=== PATIENT | male | born 1970 | race Caucasian/White ===

== ENCOUNTER 2019-06-02 19:52 | Emergency (ER) | payer MEDICAID ==
[2019-06-02] MEDS ORDERED: Acetaminophen 500 MG TAB PO ONE (22:40)
[2019-06-02] MEDS ORDERED: Acetaminophen 500 MG TAB ONE (22:44)
[2019-06-02 23:02] LABS: URINE SOURCE RANDOM
[2019-06-02 23:07] LABS: URINE BILIRUBIN NEGATIVE (NEGATIVE); URINE BLOOD NEGATIVE (NEGATIVE); URINE GLUCOSE (UA) NEGATIVE (NEGATIVE); URINE KETONE NEGATIVE (NEGATIVE); URINE LEUKOCYTE ESTERASE NEGATIVE (NEGATIVE); URINE NITRATE NEGATIVE (NEGATIVE); URINE PROTEIN NEGATIVE (NEGATIVE); URINE UROBILINOGEN 0.2 E.U./dL (0.2 - 1.0)
[2019-06-02 23:12] LABS: URINE CLARITY CLEAR (CLEAR); URINE COLOR YELLOW
[2019-06-02 23:13] LABS: URINE MICROSCOPIC INDICATED? YES
[2019-06-02 23:14] LABS: URINE BACTERIA NONE SEEN /hpf (NONE SEEN); URINE EPITHELIAL CELLS NONE SEEN /lpf (FEW); URINE RBC NONE SEEN /hpf (0-5); URINE WBC NONE SEEN /hpf (0-5)
[2019-06-02 23:29] LABS: ALB/GLOB RATIO 1.5 (1.0-1.8); ALBUMIN 4.6 gm/dL (4.2-5.5); TOTAL PROTEIN,SERUM 7.7 gm/dL (6.0-8.3)
[2019-06-02 23:34] LABS: BILIRUBIN,DIRECT 0.09 mg/dL (0.0-0.2)
--- NOTE | 2019-06-03 00:05 | ER Physician Documentation ---
DATE OF SERVICE: 06/02/2019 The patient was seen on 06/02/2019, somewhere around 10:15 or so. The patient was seen by the nurse before. CHIEF COMPLAINT: The patient is a chronic alcoholic. He has been in the alcoholic program. He wants some Librium tablets. He has been on many medications, which include oxycodone and Flomax, and he has hypertension for which he takes losartan 100 mg once a day plus for his urinary tract problems, I think BPH, he might be having, for which he takes Flomax 0.4 mg once a day. He has some chronic back pain, and now his chief complaint is that he has had a fall 1 week ago on the left side and he has pain in one of the lower ribs in the front area where his has marked X over there and there he is a feeling some grinding type of pain and he wants some Librium so that he can become detoxified and not go into DTs, which is what we will do. He is okay. We may calm him down because of this condition. The patient's other problems are already mentioned to you. PAST MEDICAL HISTORY: Otherwise, as I told you, chronic alcoholic and the patient has a history of a few falls and has chronic back pain and the patient has been taking oxycodone by pain medication doctor. Otherwise, he does not have any heart problems. He does not have any lung problem. Pulmonary dunn, no history of pneumonia, TB, pulmonary embolism, COPD, emphysema or bronchitis. Heart dunn, the patient has no history of rheumatic fever, valvular heart disease, pericardial disease, angina pectoris, pericarditis. Abdominal dunn, patient has some occasional mild epigastric discomfort. Otherwise, the rib pain that I described is the same. The patient does not have any gallbladder problems. Genitourinary dunn, the patient has benign prostatic hypertrophy for which he takes Flomax 0.4 mg once a day. The patient has chronic back pain for which he is taking oxycodone as per his pain doctor's thing. Endocrine dunn, the patient has no diabetes mellitus. No history of hypo or hyperthyroidism. The patient has no history of arrhythmia. The patient can walk. He came here with Tenebril and no family members are with him. 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 He is not working. REVIEW OF SYSTEMS: I already mentioned that no other complaints; the patient has it. The patient does not have any kind of surgery, and the patient is willing to have a chest x-ray done to find out if there is any rib fracture. Even if we find simple rib fracture, there is nothing serious can be done, but at least, we will have the diagnosis. PHYSICAL EXAMINATION: GENERAL: The patient appears to be awake, alert, oriented, not in any acute cardiorespiratory distress. EYES: Conjunctivae are pink, sclerae white. HENT: Normal. There is no definite jaundice seen on the patient. There is no definite evidence of DT seen on the patient. The patient is somewhat chubby, and Tal, the nurse has already seen and evaluated the patient in a very nice fashion. The patient got an EKG done. I am looking at it showing that the patient has normal sinus rhythm. The patient's EKG showing that the patient has some minor nonspecific ST-T changes, left atrial enlargement may be possible. Vital signs show the patient's temperature is 98.2, pulse is 81, respirations 17, blood pressure 125/89, saturation 94%. Height is 5 feet 11 inches, weight is 205 pounds. The patient's pain is about 8-10, according to the nurse, on the left rib side. Code is full status. The patient is ambulatory, but he does drink. Today, he drank almost a pint of vodka. The patient has hypertension for which he takes losartan 100 mg once a day. BACK HISTORY: The patient had surgery x 6, according to the nurse. Laminectomy was done 6 times. MEDICATIONS: The patient's medications include oxycodone 20 mg b.i.d. given by his pain specialist, 10 mg of Cymbalta b.i.d., gabapentin b.i.d., gabapentin usually comes in ____ mg twice a day, losartan 100 mg once a day plus he wants some medication. FINAL DIAGNOSES: 1. History of fall 1 week ago. 2. The patient is a chronic alcoholic. 3. Rule out fracture on the left anterior part of the chest, where he has the pain. 4. Chronic back pain. 5. Chronic pain management by the pain specialist because he has some depression, and occasionally, he takes Librium which is given by his doctor. He did not go to his doctor. He just came here, and he wants Librium. We will give him. The patient was ordered some lab workup to be done, liver profile, etc., and an x-ray of the back. Once we have the thing, we will decide about whether he needs to be admitted or not. JOB# [id number]
[2019-06-03 00:37] LABS: % BASOPHILS 0.1 % (0.0-2.0); % LYMPHOCYTES 37.1 % (20.0-50.0); % MONOCYTES 8.1 % (2.0-10.0); % NEUTROPHILS 46.7 % (40.0-80.0); EOSINOPHILE ABSOLUTE 0.5 Th/cmm (0.1-0.4); HEMATOCRIT 45.1 % (41.0-60); LYMPHOCYTE ABSOLUTE 2.5 Th/cmm (1.5-3.0); MEAN CELL VOLUME 101.2 fl (80-99); MEAN CORPUSCULAR HEMOGLOBIN 33.6 pg (26.0-30.0); MEAN CORPUSCULAR HGB CONC 33.2 pg (28.0-36.0); MONOCYTE ABSOLUTE 0.5 Th/cmm (0.3-1.0); NEUTROPHILE ABSOLUTE 3.2 Th/cmm (1.8-8.0); PLATELET COUNT 343 Th/cmm (150-400); RED BLOOD COUNT 4.46 Mil/cmm (4.30-5.70); RED CELL DISTRIBUTION WIDTH 12.9 % (11.5-20.0); WHITE BLOOD COUNT 6.7 Th/cmm (4.8-10.8)
[2019-06-03 00:48] LABS: ALB/GLOB RATIO 1.4 (1.0-1.8); ALBUMIN 4.5 gm/dL (4.2-5.5); ALKALINE PHOSPHATASE 100 U/L (34-104); BUN - UREA NITROGEN 13 mg/dL (7-25); CALCIUM SERUM 9.1 mg/dL (8.6-10.3); CHLORIDE 100 mEq/L (98-107); CREATININE - SERUM 1.1 mg/dL (0.7-1.3); GFR AFRICAN-AMERICAN > 60.0 ml/min (>90); GFR NON AFRICAN-AMERICAN > 60.0 ml/min; GLUCOSE 86 mg/dL (70-105); SGOT 25 U/L (13-39); SGPT/ALT 10 U/L (7-52); SODIUM SERUM 141 mEq/L (136-145); TOTAL PROTEIN,SERUM 7.7 gm/dL (6.0-8.3)
--- NOTE | 2019-06-03 11:43 | Diagnostic Imaging Report ---
Left RIBS 3 views Indication: History of broken left RIBS, fall Comparison: none Findings: There are minimally displaced left sixth and seventh and additional nondisplaced eighth through 10th rib fractures, age indeterminate. Please correlate clinically. No evidence of pneumothorax. Nondisplaced rib fractures. No pneumothorax identified. Left basal subsegmental atelectasis versus scarring is noted. A spinal stimulator device is noted. Postsurgical changes of the lumbosacral spine are noted. Impression: Age-indeterminate minimally displaced left 6th and left 7th rib fractures. Additional age-indeterminate nondisplaced 8th through 10th left rib fractures. Please correlate clinically. No evidence of pneumothorax. In the setting of trauma, if clinical symptoms persist and there is continued concern for an occult fracture, follow up exams in 5-7 days is suggested.
[2019-06-03 13:43] LABS: BILIRUBIN,TOTAL 0.3 mg/dL (0.3-1.0)
== END 2019-06-03 00:35 | disposition home or self-care (01) ==
LOC: ER 19:52
DX: F10.20 Alcohol dependence, uncomplicated (principal); G89.29 Other chronic pain; M54.5 Low back pain
CPT/HCPCS: 36415-UA; 71101-TC-LT; 80053-TC; 80076-TC; 81001-TC; 83735-TC; 85025-TC; 87086-90; 93005; Z7610